=== PATIENT | male | born 1940 | race Caucasian/White ===

== ENCOUNTER 2017-10-09 12:04 | Inpatient (IN) ==
[2017-10-09] MEDS ORDERED: Ipratropium/Albuterol Neb 3 ML IH ONE ×2 (12:35→13:46)
--- NOTE | 2017-10-09 12:39 | Emergency Department Note ---
Disposition Clinical Impression: COPD (chronic obstructive pulmonary disease), Elevated troponin Dyspnea Qualifiers: Dyspnea type: unspecified Qualified Code(s): R06.00 - Dyspnea, unspecified Disposition: Admitted As Inpatient Condition: Fair Time of Disposition: 14:43 General Adult HPI - General Chief complaint: ED Shortness of Breath/Dyspnea Stated complaint: MARY Time Seen by Provider: 10/09/17 12:29 Source: patient Mode of arrival: ambulatory Limitations: no limitations Nursing Notes Reviewed: Yes Vital Signs Reviewed: Yes - History of Present Illness HPI Narrative: 77-year-old male presents for complaint of dyspnea. Patient states his symptoms started over the past week. Patient had a productive cough during that timeframe. She denies any fevers. Patient reports some runny nose congestion. Patient denies any chest pain. Patient denies nausea vomiting or diarrhea. Patient states he has history of asthma. Patient denies history of blood clots in his lungs are's legs. Patient denies history of recent long car rides or surgeries. Denies a formal history of COPD or smoking, but states he has a history of asthma. Patient uses prednisone and symbicort at home. Patient denies history of congestive heart failure. Pain Scale: 0 - Related Data Home Medications Medication Instructions Recorded Confirmed Albuterol Sulfate [Ventolin Hfa] 2 puff IH Q4-6H PRN 10/09/17 10/09/17 Aspirin [Adult Aspirin Regimen] 81 mg PO DAILY 10/09/17 10/09/17 Budesonide/Formoterol 160/4.5 2 puff IH BID 10/09/17 10/09/17 [Symbicort 160/4.5] Montelukast [Singulair] 10 mg PO HS 10/09/17 10/09/17 Multivitamin [Multivitamins] 1 cap PO DAILY 10/09/17 10/09/17 predniSONE [PredniSONE] 10 mg PO BIDWM 10/09/17 10/09/17 Allergies Allergy/AdvReac Type Severity Reaction Status Date / Time Penicillins AdvReac Rash Verified 10/09/17 14:19 All systems ED: reviewed and negative except as stated. Constitutional: Denies: fever Cardiovascular: Denies: chest pain Respiratory: Reports: cough, dyspnea, sputum production Gastrointestinal: Denies: abdominal pain, nausea, vomiting Past Medical History - Past Medical History Source: patient Medical history: Reports: asthma Psychiatric history: Reports: no psych history - Social History Smoking Status: Never smoker Smokeless Tobacco Status: No Alcohol use: Reports: rarely Drug use: Reports: none Physical Exam - General Limitations: no limitations General appearance: alert, in distress - Head Head exam: atraumatic, normocephalic, normal inspection - Eye Eye exam: Present: normal appearance, PERRL, EOMI - ENT ENT exam: normal exam, normal oropharynx, mucous membranes moist - Neck Neck exam: Present: normal inspection - Chest Chest inspection: Present: normal inspection, symmetric chest wall rise - Respiratory Respiratory exam: Present: respiratory distress, accessory muscle use, prolonged expiratory phase, other (decreased air movement.) - Cardiovascular Cardiovascular exam: Present: tachycardia. Absent: systolic murmur - Abdominal Exam Abdominal exam: Present: soft, Non-Tender - Extremities Exam Extremities exam: Present: normal inspection, full ROM. Absent: tenderness, pedal edema - Back Exam Back exam: Present: normal inspection - Neurological Exam Neurological exam: Present: alert, oriented X3, CN II-XII intact - Skin Skin exam: Present: warm, dry, intact, normal color Course Course Narrative: Patient appears to be in acute respiratory distress. BiPAP was placed on the patient. Patient will get nebs, steroids, extensive cardiopulmonary evaluation. With the patient's work of breathing and tachycardia a CTA of the chest be ordered. - Reevaluation(s) Reevaluation #1: Given the patient's work of breathing as well as history of obstructive lung disease the patient will be started on antibiotics. Time: 13:08 Reevaluation #2: Patient states that he cannot lay flat for the CT scan. With patient's history of having an elevated troponin s well as concerns for PE. Empiric therapy with heparin was started. A d-dimer was added. Time: 13:48 Vital Signs Temperature 99.1 F 10/09/17 12:13 Pulse Rate 118 10/09/17 12:13 Respiratory Rate 18 10/09/17 12:13 Blood Pressure 184/98 10/09/17 12:13 O2 Sat by Pulse Oximetry 91 10/09/17 12:13 Temperature 99.1 F 10/09/17 12:13 Pulse Rate 106 10/09/17 14:00 Respiratory Rate 26 10/09/17 14:35 Blood Pressure 169/94 10/09/17 14:35 O2 Sat by Pulse Oximetry 93 10/09/17 14:09 Oxygen Delivery Oxygen Delivery Bipap Medical Decision Making - MDM Narrative Medical decision making narrative: Patient presents with signs symptoms of respiratory distress. Patient had increased work of breathing. Initial concerns for PE as well as COPD exacerbation. Patient's chest x-ray was on impressive. Patient was started on antibiotics given productive sputum over the past week. Patient's influenza screen was negative. Patient could not tolerate lying supine for the CT of the chest. Patient has a low medium risk [place]. Patient was started on anticoagulation given concerns for PE as well as elevated troponin. Patient has no contraindications to anticoagulation. Patient has been tolerating BiPAP in the emergency department. Patient will be admitted to the hospital service for further evaluation and monitoring. - Lab Data Lab results reviewed: Yes I reviewed the patient's lab results. Result diagrams: 10/09/17 12:26 10/09/17 12:26 Lab Results 10/09/17 10/09/17 10/09/17 Range/Units 12:26 12:26 12:26 WBC 16.3 H (4.3-11.1) K/mcL RBC 4.69 (4.19-5.50) M/mcL Hgb 13.6 (12.9-16.9) g/dL Hct 41.7 (37.5-50.1) % MCV 88.9 (83.0-100.0) fL MCH 29.0 (28.0-33.3) pg MCHC 32.6 (31.6-35.5) g/dL RDW 13.7 (11.5-14.5) % Plt Count 193 (140-400) K/mcL MPV 9.6 (9.4-12.4) fL Immature Gran % 0.4 (0-4) % Seg Neutrophils % 85.0 % Lymphocytes % 5.1 % Monocytes % 9.4 % Eosinophils % 0.0 % Basophils % 0.1 % Neutrophils # 13.9 H (1.6-8.9) K/mcL Lymphocytes # 0.8 (0.6-4.6) K/mcL Monocytes # 1.5 H (0.0-1.3) K/mcL Eosinophils # 0.0 (0.0-0.6) K/mcL Basophils # 0.0 (0.0-0.2) K/mcL PT (9.4-12.1) Seconds INR APTT (26.0-36.0) Seconds ABG pH (7.32-7.45) pH Units ABG pCO2 (35-45) mmHg ABG pO2 (85-104) mmHg ABG HCO3 (21-27) mEq/L ABG Total CO2 (20-26) mEq/L ABG O2 Saturation (95-98) % ABG Base Excess (-2 to 3) mEq/L O2 Delivery Device Inspired O2 (1-15=lpm [id number]=%) Sodium 130 L (136-145) mEq/L Potassium 4.0 (3.5-5.1) mEq/L Chloride 91 L (98-107) mEq/L Carbon Dioxide 31 H (23-29) mEq/L BUN 19 (8-23) mg/dL Creatinine 0.68 L (0.70-1.30) mg/dL Est GFR ( Amer) > 60 (> 60) Est GFR (Non-Af Amer) > 60 (> 60) BUN/Creatinine Ratio 28 H (6-26) Glucose 146 H (70-105) mg/dL Calculated Osmolality 275 L (280-300) Lactic Acid 0.9 (0.5-2.2) mmol/L Calcium 9.0 (8.6-10.3) mg/dL Troponin I 0.04 H* (< 0.04) ng/mL B-Natriuretic Peptide (Less than 100) pg/mL 10/09/17 10/09/17 10/09/17 Range/Units 12:26 12:26 12:48 WBC (4.3-11.1) K/mcL RBC (4.19-5.50) M/mcL Hgb (12.9-16.9) g/dL Hct (37.5-50.1) % MCV (83.0-100.0) fL MCH (28.0-33.3) pg MCHC (31.6-35.5) g/dL RDW (11.5-14.5) % Plt Count (140-400) K/mcL MPV (9.4-12.4) fL Immature Gran % (0-4) % Seg Neutrophils % % Lymphocytes % % Monocytes % % Eosinophils % % Basophils % % Neutrophils # (1.6-8.9) K/mcL Lymphocytes # (0.6-4.6) K/mcL Monocytes # (0.0-1.3) K/mcL Eosinophils # (0.0-0.6) K/mcL Basophils # (0.0-0.2) K/mcL PT 11.9 (9.4-12.1) Seconds INR 1.1 APTT 30.2 (26.0-36.0) Seconds ABG pH 7.42 (7.32-7.45) pH Units ABG pCO2 48 H (35-45) mmHg ABG pO2 63 L (85-104) mmHg ABG HCO3 31 H (21-27) mEq/L ABG Total CO2 33 H (20-26) mEq/L ABG O2 Saturation 92 L (95-98) % ABG Base Excess 6 H (-2 to 3) mEq/L O2 Delivery Device Room Air Inspired O2 21.0 (1-15=lpm [id number]=%) Sodium (136-145) mEq/L Potassium (3.5-5.1) mEq/L Chloride (98-107) mEq/L Carbon Dioxide (23-29) mEq/L BUN (8-23) mg/dL Creatinine (0.70-1.30) mg/dL Est GFR ( Amer) (> 60) Est GFR (Non-Af Amer) (> 60) BUN/Creatinine Ratio (6-26) Glucose (70-105) mg/dL Calculated Osmolality (280-300) Lactic Acid (0.5-2.2) mmol/L Calcium (8.6-10.3) mg/dL Troponin I (< 0.04) ng/mL B-Natriuretic Peptide 26 (Less than 100) pg/mL - Radiology Data Radiology results reviewed: Yes I reviewed the patient's radiology results. Chest X-Ray 10/09/17 12:34 IMPRESSION: Left basilar atelectasis or scarring. Otherwise stable chest with no new acute cardiopulmonary findings. D/ / Tamiko Tran MD / Tamiko Tran MD Interpreting Provider: Tamiko Tran MD - EKG Data EKG #1 EKG attestation: Yes I reviewed and interpreted this EKG. EKG shows normal: sinus rhythm Rate: tachycardia Rhythm: NSR [place]/QRS: left axis deviation T wave inversions noted in: III, v1 Interpretation: no acute changes, nonspecific ST-T wave changes Critical Care Time Critical Care Time: Yes Total Critical Care Time: 35 Attestation: Critical care time 35 minutes managing patient shortness of breath. Sherri - Sherri Situation: Demographics Background: Presenting Complaint Assessment: Vital Signs, Course and respsone to treatment, Patient/Family Expectation Recommendation: Barrier(s) to disposition, Recommendation based on pending studies, treatments, or consults Sherri Report Given to: Dr. Jenaro Polanco Repor Time: 14:13 Attestation Statement - Attestation Attestation: Patient was seen with resident physician. I reviewed the history, physical, assessment and plan, and agree with the findings. I also personally evaluated this patient and had [id number] time with this patient. 77-year-old male presents to the emergency Department chief complaint of difficulty breathing. Patient has a history of asthma for which she has been treated since a child. He has been taking his albuterol nebulizers, he has been taking steroids, and he has failed to improve. He is not on home O2 and he said the shortness of breath has gotten significantly worse over the last couple days. No increase in weight. He said some cough though not particularly productive. He is unsure about fevers. No chest pain. Review of systems as above remained reviewed negative. Examination. Vital signs demonstrate an increase in respiratory rate, some mild hypertension, and decreased oxygenation level. ENT is unremarkable. Heart regular rhythm and rate. Lungs poor air exchange diffuse wheezing with crackles throughout all lung shaikh. Abdomen soft and nontender. Extremities are unremarkable without swelling. Neurologically intact. Skin no rashes. Psych normal. ED course we will treat aggressively for reactive airways disease. We will place on oxygen. We will do workup for pneumonia and possible sepsis. We will likely admit to the hospital for oxygen and breathing treatments as well as antibiotics if indicated. Chest x-ray was unremarkable, but with patient's worsening breathing we did up to started on antibiotics. He also had an elevated troponin mildly so, and we attempted to get a chest CT scan but the patient refused. He said he could not lie flat. As a compromise we started him on anticoagulant therapy in case his symptoms were in part caused by pulmonary and was not. I am hoping once his breathing improves she will be able to get a definitive test for that. We did discuss his case with the hospitalist service. They agreed to accept the patient for inpatient care. He was improved throughout his stay but he I did continue to have some shortness of breath. I agree with resident physician assessment and plan. Critical care time 35 minutes.
[2017-10-09] MEDS ORDERED: methylPREDNISolone 125 MG/2 ML VIAL IVP ONE (12:40)
[2017-10-09 12:45] LABS: Basophils % 0.1 %; Hematocrit 41.7 % (37.5-50.1); Hemoglobin 13.6 g/dL (12.9-16.9); Immature Granulocytes % 0.4 % (0-4); Lymphocytes # 0.8 K/mcL (0.6-4.6); Lymphocytes % 5.1 %; Mean Corpuscular HGB Conc 32.6 g/dL (31.6-35.5); Mean Corpuscular Volume 88.9 fL (83.0-100.0); Mean Platelet Volume 9.6 fL (9.4-12.4); Monocytes # 1.5 K/mcL (0.0-1.3); Monocytes % 9.4 %; Neutrophils # 13.9 K/mcL (1.6-8.9); Platelet Count 193 K/mcL (140-400); Red Blood Count 4.69 M/mcL (4.19-5.50); Red Cell Distribution Width 13.7 % (11.5-14.5)
[2017-10-09 12:52] LABS: ABG Base Excess 6 mEq/L (-2 to 3); ABG HCO3 31 mEq/L (21-27); ABG Oxygen Saturation 92 % (95-98); ABG PCO2 48 mmHg (35-45); ABG PH 7.42 pH Units (7.32-7.45); ABG PO2 63 mmHg (85-104); ABG TCO2 33 mEq/L (20-26)
[2017-10-09] MEDS ORDERED: Levofloxacin 750 MG/150 ML 750 MG/150 ML BAG IVPB ONE (13:05)
[2017-10-09 13:10] LABS: BUN/Creatinine Ratio 28 (6-26); Blood Urea Nitrogen 19 mg/dL (8-23); Carbon Dioxide 31 mEq/L (23-29); Chloride 91 mEq/L (98-107); Glucose 146 mg/dL (70-105); Osmolality,Calculated 275 (280-300); Sodium 130 mEq/L (136-145); eGFR For African Americans > 60 (> 60); eGFR For Non-African Americans > 60 (> 60)
[2017-10-09 13:39] LABS: Troponin I 0.04 ng/mL (< 0.04)
[2017-10-09] MEDS ORDERED: Aspirin 81 MG TAB.CHEW PO ONE (13:39)
[2017-10-09] MEDS ORDERED: *HR* Heparin 5,000 UNIT/ML VIAL IVP ONE (13:47)
[2017-10-09] MEDS ORDERED: Heparin 25,000 UNIT/500 ML D5W 25,000 UNIT/500 ML BAG IVC SCH (14:00)
[2017-10-09 14:04] LABS: INR 1.1; Prothrombin Time 11.9 Seconds (9.4-12.1)
[2017-10-09 14:07] LABS: Activated Partial Thrombo Time 30.2 Seconds (26.0-36.0)
--- NOTE | 2017-10-09 14:51 | Internal Med History&Physical ---
Date of Encounter: 10/09/17 Time of Encounter: 14:26 Assessment and Plan (1) Acute respiratory failure with hypoxia Current visit: Yes Status: Acute Gradual dyspnea, white count, increased work of breathing. Rule out PE, possible lower respiratory tract infection with asthma exacerbation. - Continue Rocephin, azithromycin - Recheck Troponin 18:30 - Continue heparin drip - Solu medrol IV - Duo Neb scheduled and prn - Follow-up blood cultures, respiratory culturs. - CTA chest when patient is able to lay flat. (2) Asthma Current visit: Yes Status: Acute management as above Qualifiers: Asthma severity: moderate Asthma persistence: persistent Asthma complication type: with acute exacerbation Qualified Code(s): J45.41 - Moderate persistent asthma with (acute) exacerbation (3) Hyponatremia Current visit: Yes Status: Acute unsure of etiology. No prior lab to compare. will give gentle iv fluid hydration and recheck. (4) DVT prophylaxis Current visit: Yes Status: Acute Internal Medicine - H&P: HPI History of present illness: Mr. Dietz is a 77 year old male with history of asthma presents for sudden onset of dyspnea. Patient states this is gradually worsened over the past week but significantly worsened over past 2-3 days. He has complained of cough with some sputum congestions. He denies chest pain, fevers/chills, n/v. Triggers include cats which he lives with 7 of them. He has never had ICU visit. Patient states he is short of breath all of his life. He is unable to lay flat at baseline. In the ED patient had borderline elevated troponin of 0.04, unable to do CTA because of dyspnea, notably unable to lay flat. WBC was 16k and sodium 130. He was placed on bipap and respiratory status improved. With concern for PE he was started prophylactically on heparin drip. Past Med Surg Social Fam HX - Past Medical History Medical history: asthma Psychiatric history: no psych history - Social History Smoking Status: Never smoker Smokeless Tobacco Status: No Alcohol use: rarely Drug use: none - Family History Father Adopted: [place]: Bg Dietz Age: 84 Family Member Ethnicity: Non- Living Status: Age at : 84 Cause of : heart attack Hx Family Cardiac Disorders: Yes Internal Medicine - H&P: Meds Albuterol Sulfate [Ventolin Hfa] 2 puff IH Q4-6H PRN 10/09/17 [History] Aspirin [Adult Aspirin Regimen] 81 mg PO DAILY 10/09/17 [History] Budesonide/Formoterol 160/4.5 [Symbicort 160/4.5] 2 puff IH BID 10/09/17 [ History] Montelukast [Singulair] 10 mg PO HS 10/09/17 [History] Multivitamin [Multivitamins] 1 cap PO DAILY 10/09/17 [History] predniSONE [PredniSONE] 10 mg PO BIDWM 10/09/17 [History] 3 Allergy/AdvReac Type Severity Reaction Status Date / Time Penicillins AdvReac Rash Verified 10/09/17 14:19 All Systems PM: A 10-system review of systems was performed and is negative for pertinent findings except as documented above in the HPI. - Constitutional Vitals: Temp Pulse Resp BP Pulse Ox 99.1 F 106 22 172/98 93 10/09/17 12:13 10/09/17 14:00 10/09/17 14:00 10/09/17 14:00 10/09/17 14:09 Exam: - General Limitations: no limitations General appearance: alert, in distress - Head Head exam: atraumatic, normocephalic, normal inspection - Eye Eye exam: Present: normal appearance, PERRL, EOMI - ENT ENT exam: normal exam, normal oropharynx, mucous membranes moist - Neck Neck exam: Present: normal inspection - Chest Chest inspection: Present: normal inspection, symmetric chest wall rise - Respiratory Respiratory exam: Present: respiratory distress, accessory muscle use, prolonged expiratory phase, other (decreased air movement.) - Cardiovascular Cardiovascular exam: Present: tachycardia. Absent: systolic murmur - Abdominal Exam Abdominal exam: Present: soft, Non-Tender - Extremities Exam Extremities exam: Present: normal inspection, full ROM. Absent: tenderness, pedal edema - Back Exam Back exam: Present: normal inspection - Neurological Exam Neurological exam: Present: alert, oriented X3, CN II-XII intact - Skin Skin exam: Present: warm, dry, intact, normal color Internal Med - H&P Results - Labs CBC & Chem 7: 10/09/17 12:26 10/09/17 12:26 Labs: Short CBC 10/09/17 Range/Units 12:26 WBC 16.3 H (4.3-11.1) K/mcL Hgb 13.6 (12.9-16.9) g/dL Hct 41.7 (37.5-50.1) % Plt Count 193 (140-400) K/mcL Neutrophils # 13.9 H (1.6-8.9) K/mcL BMP 10/09/17 12:26 Sodium 130 L Potassium 4.0 Chloride 91 L Carbon Dioxide 31 H BUN 19 Creatinine 0.68 L Glucose 146 H Calcium 9.0 Cardiac Enzymes 10/09/17 Range/Units 12:26 Troponin I 0.04 H* (< 0.04) ng/mL - ABG Interpretation ABG results: 10/09/17 12:48 ABG pH 7.42 ABG pCO2 48 H ABG pO2 63 L ABG HCO3 31 H ABG Total CO2 33 H ABG O2 Saturation 92 L ABG Base Excess 6 H - Impressions ITS Impressions Chest X-Ray 10/09/17 12:34 IMPRESSION: Left basilar atelectasis or scarring. Otherwise stable chest with no new acute cardiopulmonary findings. D/ / Tamiko Tran MD / Tamiko Tran MD Interpreting Provider: Tamiko Tran MD
[2017-10-09] MEDS ORDERED: Naloxone 0.4 MG/ML INJ IVP PRN (16:20)
[2017-10-09] MEDS: Azithromycin 500 MG in D5% in Water 250 ML IVPB SCH (18:18)
[2017-10-09] MEDS: Ipratropium/Albuterol Neb 3 ML IH SCH ×2 (18:34→22:07)
[2017-10-09] MEDS: Budesonide/Formoterol 160/4.5 MDI IH SCH (19:03)
[2017-10-10] MEDS: MethylPREDNISolone 40 MG/ML VIAL IVP SCH ×2 (00:24→09:20)
[2017-10-10] MEDS ORDERED: *HR* Heparin 5,000 UNIT/ML VIAL IVP PRN ×4 (00:52→16:35)
[2017-10-10] MEDS ORDERED: *HR* Heparin 5,000 UNIT/ML VIAL IVP ONE (00:52)
[2017-10-10 01:26] LABS: Hematocrit 39.8 % (37.5-50.1); Hemoglobin 13.2 g/dL (12.9-16.9); Lymphocytes # 0.8 K/mcL (0.6-4.6); Mean Corpuscular HGB Conc 33.2 g/dL (31.6-35.5); Mean Corpuscular Hemoglobin 29.3 pg (28.0-33.3); Mean Corpuscular Volume 88.4 fL (83.0-100.0); Mean Platelet Volume 9.7 fL (9.4-12.4); Platelet Count 185 K/mcL (140-400); Red Cell Distribution Width 13.4 % (11.5-14.5)
[2017-10-10 01:33] LABS: INR 1.2; Prothrombin Time 12.8 Seconds (9.4-12.1)
[2017-10-10 01:45] LABS: BUN/Creatinine Ratio 29 (6-26); Blood Urea Nitrogen 16 mg/dL (8-23); Calcium 8.8 mg/dL (8.6-10.3); Carbon Dioxide 30 mEq/L (23-29); Chloride 92 mEq/L (98-107); Glucose 161 mg/dL (70-105); Osmolality,Calculated 279 (280-300); Potassium 4.3 mEq/L (3.5-5.1); Sodium 132 mEq/L (136-145); eGFR For African Americans > 60 (> 60); eGFR For Non-African Americans > 60 (> 60)
[2017-10-10] MEDS: Heparin 25,000 UNIT/500 ML D5W 25,000 UNIT/500 ML BAG IVC SCH ×3 (01:45→15:50)
[2017-10-10 02:31] LABS: Monocytes # 0.3 K/mcL (0.0-1.3); Neutrophils # 12.6 K/mcL (1.6-8.9); Platelet Estimate Normal (Normal)
[2017-10-10] MEDS: Ipratropium/Albuterol Neb 3 ML IH SCH ×6 (03:40→23:01)
[2017-10-10] MEDS: amLODIPine 5 MG TABLET PO SCH ×2 (05:02→07:14)
[2017-10-10] MEDS: Multivit/Ca/Min/Fe/FA 1 TAB TABLET PO SCH (09:20)
[2017-10-10] MEDS: Aspirin Enteric Coated 81 MG Tablet PO SCH (09:20)
[2017-10-10] MEDS: cefTRIAXone 1,000 MG in Water for inj. (sterile) 20 ML 10 ML IVP SCH (09:27)
[2017-10-10] MEDS ORDERED: Albuterol 2.5 MG/3 ML NEBULIZER IH PRN (09:56)
[2017-10-10] MEDS: Budesonide/Formoterol 160/4.5 MDI IH SCH ×2 (11:17→19:45)
[2017-10-10] MEDS ORDERED: methylPREDNISolone 125 MG/2 ML VIAL IVP SCH (12:00)
[2017-10-10 12:10] LABS: Adenovirus Not Detected (Not Detect); Coronavirus 229E Not Detected (Not Detect); Coronavirus HKU1 Not Detected (Not Detect)
[2017-10-10 12:11] LABS: Bordetella Pertussis Not Detected (Not Detect); Chlamydophila pneumoniae Not Detected (Not Detect); Coronavirus NL63 Not Detected (Not Detect); Coronavirus OC43 Not Detected (Not Detect); Human Metapneumovirus Not Detected (Not Detect); Human Rhinovirus/Enterovirus Not Detected (Not Detect); Influenza A Subtype 2009 H1 Not Detected (Not Detect); Influenza A Untypeable Not Detected (Not Detect); Influenza B ***DETECTED*** (Not Detect); Mycoplasma pneumoniae Not Detected (Not Detect); Parainfluenza Virus 1 Not Detected (Not Detect); Parainfluenza Virus 2 Not Detected (Not Detect); Parainfluenza Virus 3 Not Detected (Not Detect); Parainfluenza Virus 4 Not Detected (Not Detect); Respiratory Syncytial Virus Not Detected (Not Detect)
[2017-10-10] MEDS: Loratadine 10 MG TABLET PO SCH (13:15)
[2017-10-10] MEDS: methylPREDNISolone 125 MG/2 ML VIAL IVP SCH ×2 (13:16→21:57)
[2017-10-10] MEDS: Acetylcysteine 10% 2 ML INHSOL IH SCH ×2 (16:18→23:01)
[2017-10-10] MEDS: Azithromycin 500 MG in D5% in Water 250 ML IVPB SCH (16:34)
--- NOTE | 2017-10-10 20:32 | Internal Med Progress Note ---
Date of Encounter: 10/10/17 Time of Encounter: 20:30 - Assessment and plan (1) Acute respiratory failure with hypoxia Current Visit: Yes Status: Acute Assessment and plan: Unchanged. Continue supplemental O2 and duonebs. Increase solumedrol to 125 mg Q8H. Start mucinex, claritin, mucomyst inhaled, and PRN robitussin DM for cough. Continue azithromycin and rocephin. CTA chest when able to lay flat to rule out PE; currently anticoagulated with heparin drip. (2) Asthma Current Visit: Yes Status: Chronic Assessment and plan: Treating exacerbation as per above. Qualifiers: Asthma severity: moderate Asthma persistence: persistent Asthma complication type: with acute exacerbation Qualified Code(s): J45.41 - Moderate persistent asthma with (acute) exacerbation (3) COPD (chronic obstructive pulmonary disease) Current Visit: Yes Status: Chronic Assessment and plan: Treat exacerbation as per above. Qualifiers: COPD type: unspecified COPD Qualified Code(s): J44.9 - Chronic obstructive pulmonary disease, unspecified (4) Hyponatremia Current Visit: Yes Status: Acute Assessment and plan: Improved today. Na = 132. Repeat BMP in AM. (5) DVT prophylaxis Current Visit: Yes Status: Acute Assessment and plan: On heparin drip as per above. - Time Spent With Patient less than 15 minutes - Subjective Interval history: Patient had no acute events overnight. He states that breathing is unchanged. Has been coughing up thick mucus. He denies chest pain, fever, or chills. He has no new complaints. - Constitutional Vitals: Temp Pulse Resp BP Pulse Ox 97.9 F 105 19 150/97 94 10/10/17 15:22 10/10/17 15:22 10/10/17 19:45 10/10/17 19:45 10/10/17 19:45 General appearance: Present: cooperative, mild distress, A&O X 3, pleasant, answers questions appropriately - Respiratory Respiratory exam: Absent: accessory muscle use, rales, rhonchi Additional comments: Moderately labored WOB, bilateral expiratory wheezing - Cardiovascular Cardiovascular exam: Present: RRR, +S1, +S2. Absent: diastolic murmur, gallop, rubs, systolic murmur Additional comments: No BLE edema - GI/Abdominal GI/Abdominal exam: Present: normal bowel sounds, soft. Absent: distended, hepatomegaly, mass, splenomegaly, tenderness - Psychiatric Psychiatric exam: Present: normal affect, normal mood. Absent: anxious, depressed - Skin Skin exam: Present: dry, intact, warm. Absent: cyanosis, rash Internal Medicine: Result - Labs CBC & Chem 7: 10/10/17 01:09 10/10/17 01:09 Labs: Short CBC 10/10/17 Range/Units 01:09 WBC 13.7 H (4.3-11.1) K/mcL Hgb 13.2 (12.9-16.9) g/dL Hct 39.8 (37.5-50.1) % Plt Count 185 (140-400) K/mcL Neutrophils # 12.6 H (1.6-8.9) K/mcL BMP 10/10/17 01:09 Sodium 132 L Potassium 4.3 Chloride 92 L Carbon Dioxide 30 H BUN 16 Creatinine 0.55 L Glucose 161 H Calcium 8.8 - ABG Interpretation ABG results: ABG ABG pH 7.42 pH Units (7.32-7.45) 10/09/17 12:48 ABG pCO2 48 mmHg (35-45) H 10/09/17 12:48 ABG pO2 63 mmHg (85-104) L 10/09/17 12:48 ABG O2 Saturation 92 % (95-98) L 10/09/17 12:48 PT/INR, D-dimer PT 12.8 Seconds (9.4-12.1) H 10/10/17 01:09 Consult Discharge Plan - Plan Referrals: Jared Pelletier Jr, MD [Primary Care Provider] -
[2017-10-11] MEDS: Acetylcysteine 10% 2 ML INHSOL IH SCH ×4 (03:36→23:38)
[2017-10-11] MEDS: Ipratropium/Albuterol Neb 3 ML IH SCH ×6 (03:36→23:38)
[2017-10-11] MEDS: methylPREDNISolone 125 MG/2 ML VIAL IVP SCH (06:43)
[2017-10-11 07:23] LABS: BUN/Creatinine Ratio 40 (6-26); Blood Urea Nitrogen 23 mg/dL (8-23); Calcium 8.9 mg/dL (8.6-10.3); Carbon Dioxide 34 mEq/L (23-29); Chloride 90 mEq/L (98-107); Glucose 151 mg/dL (70-105); Osmolality,Calculated 277 (280-300); Potassium 4.3 mEq/L (3.5-5.1); Sodium 130 mEq/L (136-145); eGFR For African Americans > 60 (> 60); eGFR For Non-African Americans > 60 (> 60)
[2017-10-11] MEDS: Budesonide/Formoterol 160/4.5 MDI IH SCH ×2 (07:39→19:47)
[2017-10-11 07:50] LABS: Basophils % 0.1 %; Hematocrit 39.6 % (37.5-50.1); Hemoglobin 12.9 g/dL (12.9-16.9); Immature Granulocytes % 0.6 % (0-4); Lymphocytes # 0.9 K/mcL (0.6-4.6); Lymphocytes % 4.6 %; Mean Corpuscular HGB Conc 32.6 g/dL (31.6-35.5); Mean Corpuscular Hemoglobin 28.9 pg (28.0-33.3); Mean Corpuscular Volume 88.8 fL (83.0-100.0); Mean Platelet Volume 10.5 fL (9.4-12.4); Monocytes # 0.5 K/mcL (0.0-1.3); Monocytes % 2.6 %; Neutrophils # 18.8 K/mcL (1.6-8.9); Platelet Count 226 K/mcL (140-400); Red Blood Count 4.46 M/mcL (4.19-5.50); Red Cell Distribution Width 13.3 % (11.5-14.5); Segmented Neutrophils % 92.1 %
--- NOTE | 2017-10-11 08:12 | Internal Med Progress Note ---
<Isra Jordan R - Last Filed: 10/11/17 12:26> Date of Encounter: 10/11/17 - Constitutional Vitals: Temp Pulse Resp BP Pulse Ox 97.6 F 100 17 147/85 87 10/11/17 11:51 10/11/17 11:51 10/11/17 11:15 10/11/17 11:51 10/11/17 11:51 Internal Medicine: Result - Labs CBC & Chem 7: 10/11/17 06:29 10/11/17 06:29 Labs: Short CBC 10/11/17 Range/Units 06:29 WBC 20.5 H (4.3-11.1) K/mcL Hgb 12.9 (12.9-16.9) g/dL Hct 39.6 (37.5-50.1) % Plt Count 226 (140-400) K/mcL Neutrophils # 18.8 H (1.6-8.9) K/mcL BMP 10/11/17 06:29 Sodium 130 L Potassium 4.3 Chloride 90 L Carbon Dioxide 34 H BUN 23 Creatinine 0.58 L Glucose 151 H Calcium 8.9 - ABG Interpretation ABG results: ABG ABG pH 7.42 pH Units (7.32-7.45) 10/09/17 12:48 ABG pCO2 48 mmHg (35-45) H 10/09/17 12:48 ABG pO2 63 mmHg (85-104) L 10/09/17 12:48 ABG O2 Saturation 92 % (95-98) L 10/09/17 12:48 PT/INR, D-dimer PT 12.8 Seconds (9.4-12.1) H 10/10/17 01:09 Consult Discharge Plan - Plan Referrals: Jackeline Corey, REPAIR ARMATURE WINDER [Partnered Physician] - 10/18/17 10:35 am - Attending Attestation I performed an independent interview and examin of this patient. I agree with the findings, assessment, and plan of , internal medicine internal auditor. I am not convinced patient has a pulmonary embolism as his COPD exacerbation and influenza B infection provide a very good explanation for his dyspnea. We will check lower extremity ultrasound, and if negative for DVT Will DC the heparin drip. Pt has significant shortness of breath when he lays flat. States this is not a new issue for him. I do not see that he has had a recent echocardiogram and we will check this. Suspect he has some degree of pulmonary hypertension. All else as outlined per the note. <Samson Donald - Last Filed: 10/11/17 17:21> Date of Encounter: 10/11/17 Time of Encounter: 10:00 - Assessment and plan (1) Acute respiratory failure with hypoxia Current Visit: Yes Status: Acute Assessment and plan: Acute on chronic respiratory failure with hypoxia The patient has long standing history of asthma, since 9 years old There is additional concern for COPD exacerbation Finally, the patient's viral respiratory panel is Flu B positive We will continue supplemental O2, Duonebs, mucomyst, mucinex Transition to Prednisone 60mg PO Azithromycin and Rocephin Day 3; Tamiflu Day 3 Echocardiogram to monitor for cardiac causes of respiratory failure vs. pulmonary htn Likely DC Solumedrol tomorrow (2) Influenza B Current Visit: Yes Status: Acute Assessment and plan: Patient tested positive for Influenza B Tamiflu Day 2 of 5 (3) Asthma Current Visit: Yes Status: Chronic Assessment and plan: Asthma with exacerbation Management as above Qualifiers: Asthma severity: moderate Asthma persistence: persistent Asthma complication type: with acute exacerbation Qualified Code(s): J45.41 - Moderate persistent asthma with (acute) exacerbation (4) COPD (chronic obstructive pulmonary disease) Current Visit: Yes Status: Chronic Assessment and plan: Management as above Qualifiers: COPD type: COPD with acute exacerbation Qualified Code(s): J44.1 - Chronic obstructive pulmonary disease with (acute) exacerbation (5) Hyponatremia Current Visit: Yes Status: Acute Assessment and plan: Hypotonic Euvolemic Hyponatremia The patient has serum sodium of 130, and has remained low Urine Na 35, Urine Osm 862 Given the patient's recent viral infection and health state, the picture fits SIADH We will fluid restrict and observe changes He is asymptomatic (6) Pulmonary embolism Current Visit: Yes Status: Ruled-out Assessment and plan: There was initially suspicion of PE given dyspnea, hypoxia, tachycardia, and cough He was placed on a Heparin drip, however was unable to get CTA due to inability to lie flat I believe that his symptoms are better explained by acute asthma/COPD exacerbation with Influenza and hypoxia The patient has Well's PE score of 1.5, 1.3% risk of PE The patient has Well's DVT score -2, very low risk The patient cannot lie flat for CTA, and does not have a normal CXR required for V/Q scan I will order b/l venous doppler US of the lower extremities Due to the extremely low risk, I will stop Heparin Drip Qualifiers: Pulmonary embolism type: other Chronicity: unspecified Acute cor pulmonale presence: without acute cor pulmonale Qualified Code(s): I26.99 - Other pulmonary embolism without acute cor pulmonale (7) DVT prophylaxis Current Visit: Yes Status: Acute Assessment and plan: SQ Heparin - Subjective Interval history: The patient is resting comfortably in bed at time of examination. He says that he's breathing easier today that he was before, and otherwise feels okay. He does continue to have cough with sputum production, however it is manageable. He says this is very similar to other experiences he has had in the past. - Constitutional Vitals: Temp Pulse Resp BP Pulse Ox 97.6 F 94 18 166/105 100 10/11/17 06:07 10/11/17 06:07 10/11/17 07:47 10/11/17 06:07 10/11/17 07:47 General appearance: Present: cooperative, mild distress, A&O X 3, pleasant, answers questions appropriately Exam: Gen: Vitals noted. mildly distressed AAOx3 HEENT: Normocephalic, atraumatic Neck: Supple. No adenopathy. Cardiac: RRR, no murmur, +S1/S2 Pulmonary: CTA bilaterally, no wheezes, rales or rhonchi, equal chest expansion. Somewhat diminished Abdomen: Soft, non-tender, no masses felt MSK: ROM intact, no joint swelling noted Extremities: no BLE edema, nontender calf, no cyanosis or clubbing. Neuro: A&Ox3, moves all extremities, no focal deficits Psych: Appropriate mood and behavior Internal Medicine: Result - Labs CBC & Chem 7: 10/11/17 06:29 10/11/17 06:29 Labs: Short CBC 10/11/17 Range/Units 06:29 WBC 20.5 H (4.3-11.1) K/mcL Hgb 12.9 (12.9-16.9) g/dL Hct 39.6 (37.5-50.1) % Plt Count 226 (140-400) K/mcL Neutrophils # 18.8 H (1.6-8.9) K/mcL BMP 10/11/17 06:29 Sodium 130 L Potassium 4.3 Chloride 90 L Carbon Dioxide 34 H BUN 23 Creatinine 0.58 L Glucose 151 H Calcium 8.9 - ABG Interpretation ABG results: ABG ABG pH 7.42 pH Units (7.32-7.45) 10/09/17 12:48 ABG pCO2 48 mmHg (35-45) H 10/09/17 12:48 ABG pO2 63 mmHg (85-104) L 10/09/17 12:48 ABG O2 Saturation 92 % (95-98) L 10/09/17 12:48 PT/INR, D-dimer PT 12.8 Seconds (9.4-12.1) H 10/10/17 01:09 - VTE Documentation of Mechanical Device: Intermittent pneumatic compression device
[2017-10-11] MEDS: amLODIPine 5 MG TABLET PO SCH (10:11)
[2017-10-11] MEDS: Aspirin Enteric Coated 81 MG Tablet PO SCH (10:11)
[2017-10-11] MEDS: cefTRIAXone 1,000 MG in Water for inj. (sterile) 20 ML 10 ML IVP SCH (10:12)
[2017-10-11] MEDS: Loratadine 10 MG TABLET PO SCH (10:12)
[2017-10-11] MEDS: Multivit/Ca/Min/Fe/FA 1 TAB TABLET PO SCH (10:12)
[2017-10-11] MEDS: Heparin 25,000 UNIT/500 ML D5W 25,000 UNIT/500 ML BAG IVC SCH (12:54)
[2017-10-11] MEDS ORDERED: methylPREDNISolone 125 MG/2 ML VIAL IVP SCH (16:00)
[2017-10-11] MEDS: *HR* Heparin 5,000 UNIT/ML VIAL SQ SCH (17:29)
[2017-10-11] MEDS: Azithromycin 500 MG in D5% in Water 250 ML IVPB SCH (17:29)
[2017-10-11] MEDS: predniSONE 20 MG TABLET PO SCH (17:30)
--- NOTE | 2017-10-12 00:04 | Electrocardiograph Report ---
[place] [id number] Test Date: 2017-10-09 Pat Name: Rubin Dietz Department: [id number] Room: 2NE24 Gender: M Senior Sales Assistant: : 1940 Requested By: Tony Shetty Order Number: [id number] Reading MD: Carlos Lopez DO Measurements Intervals [place] Rate: 116 P: 34 MN: 158 QRS: -31 QRSD: 85 T: 16 QT: 311 QTc: 380 Interpretive Statements SINUS TACHYCARDIA MARKED LEFT AXIS DEVIATION POSSIBLE RIGHT VENTRICULAR CONDUCTION DELAY MINIMAL VOLTAGE CRITERIA FOR LVH, CONSIDER NORMAL VARIANT Electronically Signed On 10-12-2017 0:02:45 EDT by Carlos Lopez DO
[2017-10-12] MEDS: Ipratropium/Albuterol Neb 3 ML IH SCH ×6 (03:38→22:35)
[2017-10-12] MEDS: *HR* Heparin 5,000 UNIT/ML VIAL SQ SCH ×2 (06:16→17:02)
[2017-10-12] MEDS: Budesonide/Formoterol 160/4.5 MDI IH SCH ×2 (07:25→19:43)
[2017-10-12] MEDS: Acetylcysteine 10% 2 ML INHSOL IH SCH ×4 (07:25→22:35)
[2017-10-12 07:49] LABS: BUN/Creatinine Ratio 40 (6-26); Blood Urea Nitrogen 25 mg/dL (8-23); Calcium 8.9 mg/dL (8.6-10.3); Carbon Dioxide 35 mEq/L (23-29); Chloride 91 mEq/L (98-107); Glucose 127 mg/dL (70-105); Osmolality,Calculated 276 (280-300); Potassium 4.5 mEq/L (3.5-5.1); Sodium 130 mEq/L (136-145); eGFR For African Americans > 60 (> 60); eGFR For Non-African Americans > 60 (> 60)
[2017-10-12 08:27] LABS: Basophils % 0.1 %; Hematocrit 37.1 % (37.5-50.1); Hemoglobin 12.5 g/dL (12.9-16.9); Immature Granulocytes % 0.9 % (0-4); Lymphocytes # 0.9 K/mcL (0.6-4.6); Lymphocytes % 4.5 %; Mean Corpuscular HGB Conc 33.7 g/dL (31.6-35.5); Mean Corpuscular Hemoglobin 29.5 pg (28.0-33.3); Mean Corpuscular Volume 87.5 fL (83.0-100.0); Mean Platelet Volume 10.3 fL (9.4-12.4); Monocytes % 5.3 %; Neutrophils # 16.9 K/mcL (1.6-8.9); Platelet Count 227 K/mcL (140-400); Red Blood Count 4.24 M/mcL (4.19-5.50); Red Cell Distribution Width 13.5 % (11.5-14.5); Segmented Neutrophils % 89.2 %
[2017-10-12 08:39] LABS: Mycoplasma pneumoniae IgG 0.38 U/L (<=0.09)
[2017-10-12] MEDS: predniSONE 20 MG TABLET PO SCH (08:44)
[2017-10-12] MEDS: amLODIPine 5 MG TABLET PO SCH (08:44)
[2017-10-12] MEDS: Multivit/Ca/Min/Fe/FA 1 TAB TABLET PO SCH (08:44)
[2017-10-12] MEDS: Aspirin Enteric Coated 81 MG Tablet PO SCH (08:44)
[2017-10-12] MEDS: Loratadine 10 MG TABLET PO SCH (08:44)
[2017-10-12] MEDS: cefTRIAXone 1,000 MG in Water for inj. (sterile) 20 ML 10 ML IVP SCH (08:44)
[2017-10-12] MEDS ORDERED: Furosemide 40 MG/4 ML VIAL IVP ONE (13:59)
[2017-10-12] MEDS ORDERED: Azithromycin 250 MG TABLET PO SCH (17:00)
--- NOTE | 2017-10-12 18:09 | Event Note ---
Date of Encounter: 10/12/17 Time of Encounter: 17:00 I performed an independent interview and examine this patient and I discussed the findings and reviewed Dr. Gaytan's (internal medicine sport internship) input. I agree with his findings, assessment and plan. Patient is improved. We will give 1 dose of Lasix 40 mg IV. Patient will need home oxygen. Would also recommend outpatient pulmonary follow-up. All else as outlined in the progress note.
[2017-10-13] MEDS: Ipratropium/Albuterol Neb 3 ML IH SCH ×3 (03:55→11:20)
[2017-10-13] MEDS: Acetylcysteine 10% 2 ML INHSOL IH SCH ×2 (03:55→07:31)
[2017-10-13] MEDS ORDERED: Cefuroxime PO 500 MG TABLET PO SCH (06:00)
[2017-10-13] MEDS: *HR* Heparin 5,000 UNIT/ML VIAL SQ SCH (06:36)
[2017-10-13 07:12] VITALS: BP 154/97
[2017-10-13] MEDS: Budesonide/Formoterol 160/4.5 MDI IH SCH (07:31)
--- NOTE | 2017-10-13 07:57 | Discharge Summary ---
<Samson Donald - Last Filed: 10/13/17 13:29> - NOTES TO OUTPATIENT PROVIDER Notes to Outpatient Provider: The patient presented in acute respiratory distress and throughout his time has required 3 L or more oxygen. He did qualify for home oxygen which we will send, however he will are follow-up on this. Additionally we will give a referral to pulmonology for recommendations. Finally, the patient's blood pressure has been relatively high and he has remained tachycardic which could be in response to respiratory status, however we have started him on amlodipine and low dose of metoprolol which may require modification or adjustment as an outpatient. Date of Encounter: 10/13/17 Time of Encounter: 10:25 - Discharge Diagnosis (1) Acute respiratory failure with hypoxia Priority: Primary Status: Acute (2) Asthma Priority: Secondary Status: Chronic Qualifiers: Asthma severity: moderate Asthma persistence: persistent Asthma complication type: with acute exacerbation Qualified Code(s): J45.41 - Moderate persistent asthma with (acute) exacerbation (3) Influenza B Priority: Primary Status: Acute (4) COPD (chronic obstructive pulmonary disease) Priority: Secondary Status: Chronic Qualifiers: COPD type: COPD with acute exacerbation Qualified Code(s): J44.1 - Chronic obstructive pulmonary disease with (acute) exacerbation (5) Hyponatremia Priority: Secondary Status: Acute Hospital course: Mr. Dietz is a 77 year old male with history of asthma and COPD who presented to the ED with what he called sudden onset of dyspnea. Apparently this is been going on for approximately one week, however it got worse over the past 2-3 days prior to admission. In addition to this he was having productive cough, however he was not having any fevers chills nausea or vomiting. He does admit that his has recently taken in 7 cats witch apparently exacerbated his asthma. He also says that he has had asthma since he was a child, and has had periods where he does get severe. He did admit to orthopnea at that time. In the ED was found that he was likely psychotic with a white count of 16, and he was hyponatremic with a sodium of 130. He also was found to be tachycardic, and there was concern for pulmonary embolism so a heparin drip was started. He was also found to have influenza B. The patient was unable to lie flat for a CTA , and he did not have a normal chest x-ray with which we could compare a VQ scan , so we did calculate A Wells score which was low probability, and we did venous Doppler ultrasound of bilateral lower extremities which did not demonstrate any DVT. The risk for PE is very low, and we determined that respiratory status is more likely the reason for his tachycardia. The patient was treated for asthma/COPD exacerbation, and acute respiratory failure. He received 5 days of azithromycin and Rocephin, and was placed on systemic steroids. The patient did require proximally 2-4 L of oxygen throughout his admission, and he required frequent breathing treatments. Given his respiratory status along with tachycardia and orthopnea, I did order a trans- thoracic echocardiogram which demonstrated normal left ventricular ejection fraction with mild pulmonary hypertension. The patient was started on amlodipine for hypertension and metoprolol for hypertension and tachycardia for discharge. He is feeling significantly better and feels that he can go home and take care of himself there. Finally, the patient did have mild hyponatremia throughout stay which, with urine studies, appears to be related to SIADH which could be in relation to the influenza. I have recommended that the patient restrict his fluid intake to 1500 mL per day. He also will be discharged with home oxygen to be worn consistently for a saturation goal of 88-92%. The patient understands and agrees to this plan. He agrees to follow up with primary care in 3-5 days, and with pulmonology in 3-4 weeks. Discharge discussed with: patient, nurse, case management - Time Spent with Patient Total time spent providing and/or coordinating discharge services: - Discharge Medications Prescriptions: Albuterol Sulfate [Proair Hfa] 1 puff IH Q4H PRN 30 Days #1 inh NS PRN Reason: Dyspnea amLODIPine [Norvasc] 5 mg PO DAILY #30 tablet Metoprolol [Lopressor] 12.5 mg PO BID 30 Days #60 tablet Oseltamivir [Tamiflu] 75 mg PO BID 2 Days #4 capsule predniSONE [PredniSONE] 10 mg PO DAILY #22 tablet Home Medications: Aspirin [Adult Aspirin Regimen] 81 mg PO DAILY 10/09/17 [History] Budesonide/Formoterol 160/4.5 [Symbicort 160/4.5] 2 puff IH BID 10/09/17 [ History] Montelukast [Singulair] 10 mg PO HS 10/09/17 [History] Multivitamin [Multivitamins] 1 cap PO DAILY 10/09/17 [History] Albuterol Sulfate [Proair Hfa] 1 puff IH Q4H PRN 30 Days #1 inh NS 10/13/17 [Rx] Loratadine [Claritin] 10 mg PO DAILY tablet 10/13/17 [Rx] Metoprolol [Lopressor] 12.5 mg PO BID 30 Days #60 tablet 10/13/17 [Rx] Oseltamivir [Tamiflu] 75 mg PO BID 2 Days #4 capsule 10/13/17 [Rx] amLODIPine [Norvasc] 5 mg PO DAILY #30 tablet 10/13/17 [Rx] predniSONE [PredniSONE] 10 mg PO DAILY #22 tablet 10/13/17 [Rx] Allergies/Adverse Reactions: 3 Allergy/AdvReac Type Severity Reaction Status Date / Time Penicillins AdvReac Rash Verified 10/09/17 14:19 Date of admission: 10/09/17 14:30 Primary care physician: Jared Pelletier Jr, MD Consults: 10/10/17 16:49 Consult to Case Management [CONS] Routine Comment: Please get nebulizer machine for home. Discharging clinician: Samson Donald Anticipated date of discharge: 10/13/17 - Constitutional Vitals: Temp Pulse Resp BP Pulse Ox 98.0 F 88 16 154/97 94 10/13/17 07:11 10/13/17 07:11 10/13/17 07:11 10/13/17 07:11 10/13/17 07:11 General appearance: Present: cooperative, mild distress, A&O X 3, pleasant, answers questions appropriately Exam: Gen: Vitals noted. No acute distress. AAOx3. Appears somewhat frail HEENT: PERRL/EOMI, oropharynx clear, Normocephalic, atraumatic Neck: Supple. No adenopathy. Cardiac: RRR, no murmur, +S1/S2 Pulmonary: CTA bilaterally, no wheezes, rales or rhonchi, equal chest expansion Abdomen: soft, nontender, BS noted, no guarding Back: Nontender throughout. MSK: ROM intact, no joint swelling noted Extremities: no BLE edema, nontender calf, no cyanosis or clubbing Neuro: A&Ox3, moves all extremities, no focal deficits Psych: Appropriate mood and behavior - Patient Status Disposition: Home, Self-Care Condition: Fair Functional capacity at discharge: independent ambulation Overall status at discharge: patient is not back to baseline - Ambulatory Orders Ambulatory Orders: XR chest 1V portable [XR] Time Frame: 1 Month, Location: any - Discharge Instructions Instructions: Metoprolol (By mouth), Albuterol (By breathing), Prednisone (By mouth), Amlodipine (By mouth), Oseltamivir (By mouth), Asthma (DC), Acute Respiratory Distress Syndrome (DC), Influenza (DC), Influenza (GEN), Chronic Obstructive Pulmonary Disease (DC) Follow Up With: Jackeline Corey CNP [Partnered Physician] - 10/18/17 10:35 am [facility] [Provider Group] Additional Instructions: -The patient should continue to wear 3.5L O2 while at home -Restrict fluid to 1500mL per day -Continue Metoprolol 12.5mg twice a day, Amlodipine 5mg once a day -Use albuterol inhaler as needed ever 4hours -Follow-up with primary care in 3-5 days. Follow-up with pulmonology. - Diet and Activity Activity: increase activity as tolerated Diet: advance to your usual diet - VTE Documentation of Mechanical Device: Intermittent pneumatic compression device <Isra Jordan - Last Filed: 10/13/17 15:00> Date of Encounter: 10/13/17 Hospital course: Mr. Dietz is a 77 year old male - Time Spent with Patient Total time spent providing and/or coordinating discharge services: Date of admission: 10/09/17 14:30 Primary care physician: Jared Pelletier Jr, MD Consults: 10/10/17 16:49 Consult to Case Management [CONS] Routine Comment: Please get nebulizer machine for home. - Constitutional Vitals: Temp Pulse Resp BP Pulse Ox 98.0 F 84 16 154/97 94 10/13/17 07:11 10/13/17 11:53 10/13/17 07:31 10/13/17 07:31 10/13/17 09:17 - Attending Attestation I performed an independent interview and examine this patient. I am in agreement with the findings, assessment, and plan of Dr. Donald, internal medicine compensation intern. Patient will continue treatment for influenza B for total of 5 days with Tamiflu. Did complete a 5 day course of antibiotics for community acquired pneumonia. He will continue on a prolonged steroid taper. Patient continues to need oxygen and we did order this at home. We also did recommend he follow up with automotive alignment specialist. Patient otherwise was significantly improved. We did recommend volume restriction as well for his hyponatremia. Condition on discharge stable. 41 minutes spent on discharge and coordination of care.
[2017-10-13] MEDS ORDERED: predniSONE 20 MG TABLET PO SCH (09:00)
[2017-10-13] MEDS: amLODIPine 5 MG TABLET PO SCH (09:03)
[2017-10-13] MEDS: Multivit/Ca/Min/Fe/FA 1 TAB TABLET PO SCH (09:03)
[2017-10-13] MEDS: Loratadine 10 MG TABLET PO SCH (09:03)
[2017-10-13] MEDS: Aspirin Enteric Coated 81 MG Tablet PO SCH (09:03)
== END 2017-10-13 12:39 | disposition home or self-care (01) | DRG 189 ==
LOC: EMEROO 12:04 → 2NENU 14:30
PROVIDERS: ADMIT Student in an Organized Health Care Education/Training Program; ATTEND Family Medicine

== ENCOUNTER 2020-08-24 10:50 | Inpatient (IN) ==
[2020-08-24] MEDS ORDERED: Ipratropium/Albuterol Neb 3 ML IH ONE (11:15)
[2020-08-24] MEDS ORDERED: 0.9 % Sodium Chloride 1,000 ML IVC ONE (11:15)
[2020-08-24] MEDS ORDERED: methylPREDNISolone 125 MG/2 ML VIAL IVP ONE (11:16)
[2020-08-24] MEDS ORDERED: Furosemide 40 MG/4 ML VIAL IVP ONE (11:16)
[2020-08-24] MEDS ORDERED: Isovue-370 500 ML BOTTLE IVP ONE ×2 (11:16→11:52)
[2020-08-24 11:26] LABS: Basophils % 0.2 %; Eosinophils # 0.1 K/mcL (0.0-0.6); Eosinophils % 0.6 %; Hematocrit 36.4 % (37.5-50.1); Hemoglobin 11.4 g/dL (12.9-16.9); Immature Granulocytes % 0.9 % (0-4); Lymphocytes # 1.1 K/mcL (0.6-4.6); Mean Corpuscular HGB Conc 31.3 g/dL (31.6-35.5); Mean Corpuscular Hemoglobin 29.3 pg (28.0-33.3); Mean Corpuscular Volume 93.6 fL (83.0-100.0); Mean Platelet Volume 9.5 fL (9.4-12.4); Monocytes # 1.3 K/mcL (0.0-1.3); Monocytes % 9.6 %; Neutrophils # 10.7 K/mcL (1.6-8.9); Platelet Count 284 K/mcL (140-400); Red Blood Count 3.89 M/mcL (4.19-5.50); Segmented Neutrophils % 80.7 %; White Blood Count 13.3 K/mcL (4.3-11.1)
[2020-08-24 11:28] LABS: VBG HCO3 29 mEq/L (21-27); VBG PCO2 47 mmHg (41-51); VBG PO2 113 mmHg (25-50)
[2020-08-24 11:53] LABS: Alanine Aminotransferase 16 Units/L (7-52); Albumin 3.6 g/dL (3.5-5.7); Albumin/Globulin Ratio 1.3 (1.1-2.2); Alkaline Phosphatase 221 Units/L (34-104); Aspartate Amino Transferase 38 Units/L (13-39); BUN/Creatinine Ratio 30 (6-26); Bilirubin,Direct 0.2 mg/dL (0.0-0.2); Bilirubin,Indirect 0.5 mg/dL (0.0-1.0); Bilirubin,Total 0.7 mg/dL (0.3-1.0); Blood Urea Nitrogen 18 mg/dL (8-23); Carbon Dioxide 27 mEq/L (23-29); Chloride 101 mEq/L (98-107); Globulin 2.8 g/dL (2.4-3.5); Glucose 87 mg/dL (70-105); Lipase 4 Units/L (11-82); Osmolality,Calculated 287 (280-300); Potassium 4.2 mEq/L (3.5-5.1); Sodium 138 mEq/L (136-145); Total Protein 6.4 g/dL (6.4-8.9); Troponin I 0.03 ng/mL (< 0.04); eGFR For African Americans > 60 (> 60); eGFR For Non-African Americans > 60 (> 60)
[2020-08-24 12:25] LABS: Bacteria,Urine Few per hpf (None-Few); Bilirubin,Urine Negative (Negative); Blood,Urine Small (Negative); Clarity,Urine Clear (Clear); Color,Urine Colorless (Yellow); Glucose,Urine (UA) Normal (Normal); Ketones,Urine Negative (Negative); Leukocyte Esterase,Urine Trace (Negative); Mucus,Urine Few per lpf (None-Few); Nitrite,Urine Negative (Negative); Protein,Urine Negative (Neg-Trace); RBC,Urine 15-30 per hpf (0-3); Specific Gravity,Urine 1.005 (1.010-1.025); Urobilinogen,Urine Normal (Normal)
[2020-08-24] MEDS ORDERED: *HR* FentaNYL (PF) 100 MCG/2 ML VIAL IVP ONE (12:26)
[2020-08-24] MEDS ORDERED: Vancomycin 1,250 MG/262.5 ML IV.SOLN IVPB ONE (14:04)
[2020-08-24] MEDS ORDERED: Milk and Molasses Enema 200 ML RC ONE (14:21)
[2020-08-24] MEDS ORDERED: Ondansetron 4 MG/2 ML VIAL IVP PRN (14:41)
[2020-08-24] MEDS ORDERED: Naloxone 0.4 MG/ML INJ IVP PRN (14:41)
[2020-08-24] MEDS ORDERED: *HR* OxyCODONE/APAP 5/325 TABLET PO PRN (14:43)
[2020-08-24] MEDS ORDERED: *HR* FentaNYL PATCH 12 MCG PATCH TD SCH (14:45)
[2020-08-24] MEDS ORDERED: 0.9 % Sodium Chloride 1,000 ML IVC SCH (15:00)
[2020-08-24] MEDS ORDERED: MethylPREDNISolone 40 MG/ML VIAL IVP SCH (16:00)
[2020-08-24] MEDS ORDERED: *HR* FentaNYL PATCH 12 MCG PATCH TD PRN (16:45)
[2020-08-24] MEDS ORDERED: Ketorolac 15 MG/ML VIAL IVP PRN (16:45)
[2020-08-24] MEDS: Ipratropium/Albuterol Neb 3 ML IH SCH ×2 (17:05→20:31)
[2020-08-24] MEDS: *HR* Heparin 5,000 UNIT/ML VIAL SQ SCH (17:38)
[2020-08-24] MEDS: MethylPREDNISolone 40 MG/ML VIAL IVP SCH (17:38)
[2020-08-24] MEDS: Gabapentin 300 MG CAPSULE PO SCH ×2 (17:39→21:13)
[2020-08-24 19:13] LABS: INR 1.2; Prothrombin Time 13.8 Seconds (9.4-12.1)
[2020-08-24] MEDS: Budesonide/Formoterol 160/4.5 1 PUFF INH IH SCH (20:31)
[2020-08-24] MEDS: Furosemide 40 MG TABLET PO SCH (21:14)
[2020-08-24] MEDS: Sennosides 8.6 MG TABLET PO SCH (21:14)
[2020-08-25] MEDS: Ipratropium/Albuterol Neb 3 ML IH SCH ×7 (00:04→23:36)
[2020-08-25 05:13] LABS: Basophils % 0.1 %; Hematocrit 34.3 % (37.5-50.1); Hemoglobin 10.8 g/dL (12.9-16.9); Immature Granulocytes % 0.9 % (0-4); Lymphocytes # 0.7 K/mcL (0.6-4.6); Lymphocytes % 5.8 %; Mean Corpuscular HGB Conc 31.5 g/dL (31.6-35.5); Mean Corpuscular Hemoglobin 29.4 pg (28.0-33.3); Mean Corpuscular Volume 93.5 fL (83.0-100.0); Mean Platelet Volume 10.1 fL (9.4-12.4); Monocytes # 0.5 K/mcL (0.0-1.3); Monocytes % 3.9 %; Neutrophils # 10.7 K/mcL (1.6-8.9); Platelet Count 278 K/mcL (140-400); Red Blood Count 3.67 M/mcL (4.19-5.50); Red Cell Distribution Width 14.8 % (11.5-14.5); Segmented Neutrophils % 89.3 %
[2020-08-25 05:26] LABS: BUN/Creatinine Ratio 33 (6-26); Blood Urea Nitrogen 24 mg/dL (8-23); Calcium 8.5 mg/dL (8.6-10.3); Carbon Dioxide 27 mEq/L (23-29); Chloride 101 mEq/L (98-107); Glucose 127 mg/dL (70-105); Magnesium 2.3 mg/dL (1.6-2.6); Osmolality,Calculated 296 (280-300); Phosphorous 3.9 mg/dL (2.7-4.5); Potassium 3.8 mEq/L (3.5-5.1); Sodium 140 mEq/L (136-145); eGFR For African Americans > 60 (> 60); eGFR For Non-African Americans > 60 (> 60)
[2020-08-25] MEDS: MethylPREDNISolone 40 MG/ML VIAL IVP SCH ×2 (05:56→17:44)
[2020-08-25] MEDS: *HR* Heparin 5,000 UNIT/ML VIAL SQ SCH ×2 (05:57→17:41)
[2020-08-25] MEDS: Budesonide/Formoterol 160/4.5 1 PUFF INH IH SCH ×2 (07:50→19:44)
[2020-08-25] MEDS: Gabapentin 300 MG CAPSULE PO SCH ×3 (09:59→20:52)
[2020-08-25] MEDS: Sennosides 8.6 MG TABLET PO SCH (10:00)
[2020-08-25] MEDS: Furosemide 40 MG TABLET PO SCH ×2 (10:00→20:52)
[2020-08-25] MEDS: polyethylene glycoL 3350 17 GM POWD.PACK PO SCH (10:08)
[2020-08-25] MEDS ORDERED: *HR* FentaNYL PATCH 12 MCG PATCH TD SCH (12:00)
[2020-08-25] MEDS ORDERED: *HR* OxyCODONE/APAP 5/325 TABLET PO PRN (13:15)
[2020-08-25] MEDS: Sennosides/Docusate Sodium TABLET PO SCH (20:52)
[2020-08-26] MEDS: Ipratropium/Albuterol Neb 3 ML IH SCH ×4 (03:27→16:01)
[2020-08-26] MEDS: *HR* Heparin 5,000 UNIT/ML VIAL SQ SCH ×2 (05:00→17:28)
[2020-08-26] MEDS: MethylPREDNISolone 40 MG/ML VIAL IVP SCH (05:02)
[2020-08-26 06:07] LABS: Basophils % 0.1 %; Hematocrit 33.1 % (37.5-50.1); Hemoglobin 10.4 g/dL (12.9-16.9); Immature Granulocytes % 0.8 % (0-4); Lymphocytes # 0.6 K/mcL (0.6-4.6); Lymphocytes % 4.3 %; Mean Corpuscular HGB Conc 31.4 g/dL (31.6-35.5); Mean Corpuscular Hemoglobin 29.5 pg (28.0-33.3); Mean Platelet Volume 10.2 fL (9.4-12.4); Monocytes # 0.9 K/mcL (0.0-1.3); Monocytes % 6.4 %; Neutrophils # 12.8 K/mcL (1.6-8.9); Platelet Count 290 K/mcL (140-400); Red Blood Count 3.52 M/mcL (4.19-5.50); Red Cell Distribution Width 14.7 % (11.5-14.5); Segmented Neutrophils % 88.4 %; White Blood Count 14.4 K/mcL (4.3-11.1)
[2020-08-26 06:26] LABS: BUN/Creatinine Ratio 53 (6-26); Blood Urea Nitrogen 33 mg/dL (8-23); Calcium 8.6 mg/dL (8.6-10.3); Carbon Dioxide 32 mEq/L (23-29); Chloride 103 mEq/L (98-107); Glucose 154 mg/dL (70-105); Magnesium 2.5 mg/dL (1.6-2.6); Osmolality,Calculated 306 (280-300); Potassium 3.6 mEq/L (3.5-5.1); Sodium 143 mEq/L (136-145); eGFR For African Americans > 60 (> 60); eGFR For Non-African Americans > 60 (> 60)
[2020-08-26] MEDS: Budesonide/Formoterol 160/4.5 1 PUFF INH IH SCH (07:39)
[2020-08-26] MEDS: Furosemide 40 MG TABLET PO SCH (08:27)
[2020-08-26] MEDS: Sennosides/Docusate Sodium TABLET PO SCH (08:28)
[2020-08-26] MEDS: Gabapentin 300 MG CAPSULE PO SCH ×2 (08:28→17:28)
[2020-08-26] MEDS: polyethylene glycoL 3350 17 GM POWD.PACK PO SCH (08:28)
[2020-08-26] MEDS ORDERED: predniSONE 20 MG TABLET PO SCH (09:00)
[2020-08-26] MEDS ORDERED: Bicalutamide 50 MG TABLET PO SCH (10:30)
[2020-08-26 16:08] VITALS: BP 139/67
== END 2020-08-26 18:47 | disposition home or self-care (01) | DRG 722 ==
LOC: 2ANU 10:50 → EMEROOARM 10:50 → 2ANU 15:12
PROVIDERS: ADMIT Student in an Organized Health Care Education/Training Program; ATTEND Student in an Organized Health Care Education/Training Program